=== PATIENT | female | born 2000 | race Caucasian/White ===

== ENCOUNTER 2021-06-18 02:54 | Observation (INO) | payer MEDICAID ==
[2021-06-18] VITALS (7 sets, daily range): BP systolic 122–136; BP diastolic 60–99; PULSE 76–90; TEMP 97.8–99.2
[~2021-06-18] VITALS: Ht 162.6 cm; Wt 68.2 kg
[2021-06-18 03:15] LABS: COLLECTION METHOD CLEAN CATCH
[2021-06-18 03:19] LABS: BASO # 0.1 K/mm3 (0.0-0.2); BASO % 0.5 % (0.0-2.0); EOS # 0.3 K/mm3 (0.0-0.7); EOS % 2.3 % (0.0-4.0); GRAN # 8.4 K/mm3 (1.4-6.5); GRAN % 59.8 % (42.2-75.2); HEMATOCRIT 40.5 % (35.0-45.0); HEMOGLOBIN 13.6 g/dl (12.0-15.0); LYMPH % 28.2 % (20.0-51.0); MEAN CELL VOLUME 85 fl (80.0-95.0); MEAN CORPUSCULAR HEMOGLOBIN 29 pg (26-32); MEAN CORPUSCULAR HGB CONC 34 g/dl (33.0-37.0); MEAN PLATELET VOLUME 10.6 fl (7.4-10.4); MONO # 1.2 K/mm3 (0.1-0.6); MONO % 8.6 % (1.7-9.3); PLATELET COUNT 270 K/mm3 (130-400); RED BLOOD COUNT 4.78 M/mm3 (4.10-5.30); REDCELL DISTRIBUTION WIDTH-CV 12.8 % (11.5-14.5)
[2021-06-18 03:23] LABS: MUCOUS Present (NOT PRESENT); PH 6 (5-8); URINE APPEARANCE Hazy (CLEAR/HAZY); URINE BACTERIA None Seen /hpf (NONE SEEN); URINE BILIRUBIN Negative (NEGATIVE); URINE BLOOD 1+ (NEGATIVE); URINE COLOR Yellow (YELLOW); URINE GLUCOSE Negative (NEGATIVE); URINE KETONE 1+ (NEGATIVE); URINE LEUKOCYTE ESTERASE Negative (NEGATIVE); URINE NITRATE Negative (NEGATIVE); URINE PROTEIN(semi-quant) Negative (NEGATIVE); URINE RBC 0-2 /hpf (0-2); URINE UROBILINOGEN Negative (NEGATIVE)
[2021-06-18 03:38] LABS: ALBUMIN 4.5 gm/dL (3.5-5.0); BILIRUBIN,TOTAL 0.6 mg/dL (0.2-1.2); CREATININE, serum 0.86 mg/dL (0.57-1.11); POTASSIUM 3.1 mmol/L (3.5-4.5); TOTAL PROTEIN 7.2 gm/dL (6.2-8.1)
[2021-06-18] MEDS ORDERED: IBU800 M1 PO (11:43)
[2021-06-18] MEDS ORDERED: PERCOCET 325 MG1 TA2 PO (11:43)
--- NOTE | 2021-06-18 12:00 | NUR ---
Pt arrived on unit from PACU via bed. Report received. Oriented to room, bed and call light within reach. Plan of care reviewed.
--- NOTE | 2021-06-18 13:00 | NUR ---
Pt up to the bathroom with stand-by assist and without complications. Pt was able to void. Chayo-care done. Pt back to bed without complications. Plan of care reviewed. Call light within reach.
--- NOTE | 2021-06-18 15:55 | NUR ---
Discharge instructions and follow up care reviewed with pt and mother at the bedside. Both verbalized an understanding, agreed with the plan and states no questions or concerns at this time.
== END 2021-06-18 16:00 | disposition home or self-care (01) ==
LOC: COL.ER 02:54 → OB 09:21
PROVIDERS: Emergency Medicine; ADMIT Student in an Organized Health Care Education/Training Program
DX: D39.11 Neoplasm of uncertain behavior of right ovary (principal); R11.2 Nausea with vomiting, unspecified
CPT/HCPCS: OP; J0690; J1100; J1170; J1885; J2405; J2704; J3010; J7030; J7120; Q9967

== ENCOUNTER 2021-06-23 01:08 | Emergency (ER) | payer MEDICAID ==
[~2021-06-23] VITALS: Ht 165.1 cm; Wt 77.3 kg
[~2021-06-23 01:08] MED LIST: IBU800 M1 PO; PERCOCET 325 MG1 TA2 PO
[2021-06-23 03:46] VITALS: BP 120/71; PULSE 82; TEMP 98.2
== END 2021-06-23 03:49 | disposition home or self-care (01) ==
LOC: COL.ER 01:08
DX: R00.2 Palpitations (principal)
CPT/HCPCS: J1100; J2060; J7030

== ENCOUNTER 2022-01-18 10:20 | Emergency (ER) | payer MEDICAID ==
[~2022-01-18] VITALS: Ht 162.6 cm; Wt 77.3 kg
[2022-01-18 11:03] VITALS: BP 136/78; TEMP 97.7
[2022-01-18 14:05] VITALS: PULSE 89
== END 2022-01-18 20:48 | disposition home or self-care (01) ==
LOC: COL.ER 10:20
DX: T81.31XA Disruption of external operation (surgical) wound, not elsewhere classified, initial encounter (principal); Z28.310 Unvaccinated for COVID-19